=== PATIENT | female | born 1955 | race Caucasian/White ===

== ENCOUNTER 2017-01-17 11:01 | Observation (INO) | payer OTHER ==
[~2017-01-17] VITALS: Ht 157.5 cm; Wt 75.0 kg
[~2017-01-17 11:01] MED LIST: AUGM500T7 PO; CALC600T34 PO; HYDR-3533 PO; LOVA40TA PO; [UNRECOGNIZED DRUG - REMARK] PO
[2017-01-17 11:02] VITALS: BP 159/82; PULSE 78; RESP 20; TEMP 98.1; O2SAT 98
[2017-01-17 11:37] LABS: AUTOMATED NEUTROPHIL # 2.5 TH/MM3 (1.8-7.7); BASOPHIL % 0.5 % (0.0-2.0); EOSINOPHIL % 0.7 % (0.0-4.0); HEMATOCRIT 36.9 % (35.0-46.0); HEMO FLAGS DIFF FINAL; LYMPH % 48.2 % (9.0-44.0); LYMPHOCYTE # 2.7 TH/MM3 (1.0-4.8); MEAN CELL VOLUME 98.9 FL (80.0-100.0); MEAN CORPUSCULAR HEMOGLOBIN 34.1 PG (27.0-34.0); MEAN CORPUSCULAR HGB CONC 34.5 % (32.0-36.0); MONO % 5.7 % (0.0-8.0); NEUT % 44.9 % (16.0-70.0); PLATELET COUNT 141 TH/MM3 (150-450); RED BLOOD COUNT 3.73 MIL/MM3 (4.00-5.30); RED CELL DISTRIBUTION WIDTH 12.9 % (11.6-17.2); WHITE BLOOD COUNT 5.5 TH/MM3 (4.0-11.0)
--- NOTE | 2017-01-17 11:46 | RADRPT ---
EXAM DATE/TIME: 01/17/2017 11:35 [place] COMPARISON: FINGER LEFT 1ST DIGIT ([id number]), March 07, 2015, 9:34. INDICATIONS : Mid sternal chest pains, radiating into upper back and left shoulder. MEDICAL HISTORY : None. SURGICAL HISTORY : None. ENCOUNTER: Initial ACUITY: 2 months PAIN SCORE: 6/10 LOCATION: Left chest FINDINGS: The heart is normal in size. Diffuse chronic interstitial changes. No pleural effusion is evident. Vi sualized bony structures are grossly intact. CONCLUSION: COPD changes. No acute abnormality. Ivan Dacosta MD on January 17, 2017 at 11:44 Board Certified Radiologist. This report was verified electronically.
--- NOTE | 2017-01-17 11:49 | PD ---
HPI Chief Complaint: Chest Pain Time Seen by Provider: 11:48 Travel History International Travel<30 days: No Contact w/Intl Traveler<30days: No Traveled to known affect area: No History of Present Illness HPI 61 YO F with PMH of hypercholesterolemia, current smoker with [id number] history presents to the ED for evaluation of a 2 month history of intermittent left-sided dull chest pain. Worsened over the last week. Constant on presentation. Rated 3/10. No alleviating or exacerbating factors reported. The patient endorses one single episode of radiation to the back which has since resolved. The patient denies accompanying palpitations, shortness of breath, diaphoresis, nausea, vomiting. She endorses family history of IA--- her father at age 50 and her grandfather at an unknown age. She has never had a cardiac workup. PFSH Past Medical History Hx Anticoagulant Therapy: No High Cholesterol: Yes Diminished Hearing: No GERD: Yes Musculoskeletal: Yes (OSTEOPENIA) Dilation and Curettage (D&C): Yes Past Surgical History Oral Surgery: Yes (wisdom teeth) Social History Alcohol Use: Yes (seldom , wine or rum) Tobacco Use: Yes (5 cigs a day) Substance Use: No Allergies-Medications (Allergen,Severity, Reaction): Coded Allergies: No Known Allergies (Unverified , 03/07/15) Reported Meds & Prescriptions Reported Meds & Active Scripts Active Reported Calcium 600 with Vitamin D (Calcium Carbonate-Cholecalciferol) 600-400 mg-Unit Tab 1 Tab PO DAILY Crestor (Rosuvastatin Calcium) 20 Mg Tab 20 Mg PO DAILY Review of Systems Except as stated in HPI: all other systems reviewed are Neg Physical Exam Narrative GENERAL: Well-nourished, well-developed white female in no acute distress. SKIN: Focused skin assessment warm/dry. HEAD: Normocephalic. EYES: No scleral icterus. No injection or drainage. NECK: Supple, trachea midline. No JVD or lymphadenopathy. CARDIOVASCULAR: Regular rate and rhythm without murmurs, gallops, or rubs. CHEST: Nontender throughout without deformity or crepitus. RESPIRATORY: Breath sounds clear and equal bilaterally. No accessory muscle use. GASTROINTESTINAL: Abdomen soft, non-tender, nondistended. Active bowel sounds. MUSCULOSKELETAL: No cyanosis, or edema. BACK: Nontender without obvious deformity. No CVA tenderness. Data Data Last Documented VS Vital Signs Date Time Temp Pulse Resp B/P (MAP) Pulse Ox O2 Delivery O2 Flow Rate FiO2 01/17/17 12:04 70 19 144/76 (98) 98 Room Air 01/17/17 11:02 98.1 Orders Orders Electrocardiogram (01/17/17 11:10) Complete Blood Count With Diff (01/17/17 11:10) Basic Metabolic Panel (Bmp) (01/17/17 11:10) Ckmb (Isoenzyme) Profile (01/17/17 11:10) Troponin I (01/17/17 11:10) Chest, Single Ap (01/17/17 11:10) Admit Order (Ed Use Only) (01/17/17 12:21) Labs Laboratory Tests Test 01/17/17 11:20 White Blood Count 5.5 TH/MM3 Red Blood Count 3.73 MIL/MM3 Hemoglobin 12.7 GM/DL Hematocrit 36.9 % Mean Corpuscular Volume 98.9 FL Mean Corpuscular Hemoglobin 34.1 PG Mean Corpuscular Hemoglobin Concent 34.5 % Red Cell Distribution Width 12.9 % Platelet Count 141 TH/MM3 Mean Platelet Volume 8.8 FL Neutrophils (%) (Auto) 44.9 % Lymphocytes (%) (Auto) 48.2 % Monocytes (%) (Auto) 5.7 % Eosinophils (%) (Auto) 0.7 % Basophils (%) (Auto) 0.5 % Neutrophils # (Auto) 2.5 TH/MM3 Lymphocytes # (Auto) 2.7 TH/MM3 Monocytes # (Auto) 0.3 TH/MM3 Eosinophils # (Auto) 0.0 TH/MM3 Basophils # (Auto) 0.0 TH/MM3 CBC Comment DIFF FINAL Differential Comment Blood Urea Nitrogen 14 MG/DL Creatinine 0.62 MG/DL Random Glucose 108 MG/DL Calcium Level 8.8 MG/DL Sodium Level 141 MEQ/L Potassium Level 4.0 MEQ/L Chloride Level 110 MEQ/L Carbon Dioxide Level 25.0 MEQ/L Anion Gap 6 MEQ/L Estimat Glomerular Filtration Rate 98 ML/MIN Total Creatine Kinase 63 U/L Troponin I LESS THAN 0.02 NG/ML MDM Medical Decision Making Medical Screen Exam Complete: Yes Emergency Medical Condition: Yes Differential Diagnosis Chest pain versus emphysema versus PNA versus ACS versus angina versus other Narrative Course 61 YO F with PMH of hypercholesterolemia, current smoker with 10-[id number]-[id number] history presents to the ED for evaluation of a 2 month history of intermittent left-sided dull chest pain. Worsened over the last week. Constant on presentation. Rated 3/10. No alleviating or exacerbating factors reported. The patient endorses one single episode of radiation to the back which has since resolved. The patient denies accompanying palpitations, shortness of breath, diaphoresis, nausea, vomiting. She endorses family history of IA--- her father at age 50 and her grandfather at an unknown age. She has never had a cardiac workup. Vitals reviewed. Physical exam is unremarkable. No appreciable hem/R/G. Chest clear to auscultation bilaterally. No lower extremity edema. EKG: Rate 75, sinus rhythm. Normal intervals. Normal axis. No ST changes. Reviewed by Dr. Daily. Cardiac enzymes negative x 1. CXR: COPD changes, no acute abnormality. No concerning abnormalities of CBC or BMP. I discussed the patient, workup and plan with Dr. Daily who is in agreement. Discussed the workup with the patient. Plan to admit to the [facility] to rule out cardiac etiology. Patient is agreeable to this plan. Please see [facility] notes for disposition. Sana Elena Jan 17, 2017 11:49
[2017-01-17 11:53] LABS: ANION GAP 6 MEQ/L (5-15); BLOOD UREA NITROGEN 14 MG/DL (7-18); CHLORIDE 110 MEQ/L (98-107); GLOMERULAR FILTRATION RATE 98 ML/MIN (>89); SODIUM (NA) 141 MEQ/L (136-145)
[2017-01-17] MEDS ORDERED: ROSU20 PO (11:54)
[2017-01-17 11:58] LABS: CREATINE KINASE 63 U/L (26-192)
[2017-01-17] MEDS ORDERED: CALC1TAB87 PO (12:01)
[2017-01-17 12:04] VITALS: BP 144/76; PULSE 70; RESP 19; O2SAT 98
[2017-01-17 13:40] VITALS: BP 134/71
--- NOTE | 2017-01-17 13:41 | HHI.HP ---
[facility] Primary Care Physician Thomas La MD Chief Complaint Chest pain History of Present Illness This is a 61-year-old female that presents to ED via private vehicle with a complaint of initially having intermittent left-sided chest discomfort for several months. However she states that it is been constant for the last week. She found nothing initially to bring on the discomfort. She is found nothing to worsen her symptoms over the last week. She has found that if she raises her left arm above her head at the discomfort can improved sometimes. Denies shortness breath nausea or diaphoresis. Cannot recall ever having a cardiac workup. Denies recent illnesses. Denies fevers or chills. Review of Systems General: Patient denies fevers, chills recent, and recent travel HEENT: Patient denies headache, sore throat, difficulty swallowing. Cardiovascular: Has the chest discomfort as mentioned above. Denies sensation of heart beating rapidly or irregularly. No syncope. Denies diaphoresis. Respiratory: Denies shortness of breath or inspirational chest discomfort. Denies coughing wheezing or hemoptysis. GI: Patient denies nausea, vomiting, diarrhea, abdominal pain, bloody stools. Musculoskeletal: Patient denies joint pain or edema. Denies calf pain or edema. Neurovascular: Patient denies numbness, tingling, weakness in extremities. Denies headache. Endocrine: Denies polyuria and polydipsia. Hematologic: Denies easy bruising. Skin: Denies rash or itching. Past Family Social History Allergies: Coded Allergies: No Known Allergies (Unverified , 03/07/15) Past Medical History Hyperlipidemia and tobacco abuse. Denies hypertension, diabetes and CAD. Past Surgical History Noncontributory. Reported Medications Reported Meds & Active Scripts Active Reported Calcium 600 with Vitamin D (Calcium Carbonate-Cholecalciferol) 600-400 mg-Unit Tab 1 Tab PO DAILY Crestor (Rosuvastatin Calcium) 20 Mg Tab 20 Mg PO DAILY Family History Her father had CAD. He in his 70s. Social History Patient has smoked about a quarter pack of cigarettes daily for 40 years. Has an occasional alcoholic beverage. Denies illicit drugs. She is a world geography teacher. Physical Exam Vital Signs Vital Signs Date Time Temp Pulse Resp B/P (MAP) Pulse Ox O2 Delivery O2 Flow Rate FiO2 01/17/17 12:04 70 19 144/76 (98) 98 Room Air 01/17/17 11:56 64 20 98 01/17/17 11:02 98.1 78 20 159/82 (107) 98 Room Air Physical Exam GENERAL: This is a well-nourished, well-developed patient, in no apparent distress. Patient speaks in clear complete sentences. Patient is pleasant. HEENT: Head is atraumatic and normocephalic. Neck is supple without lymphadenopathy and trachea is midline. No JVD or carotid bruits. CARDIOVASCULAR: Regular rate and rhythm without murmurs, gallops, or rubs. RESPIRATORY: Clear to auscultation. Breath sounds equal bilaterally. No wheezes , rales, or rhonchi. Chest wall is tender on the left side however it does not seem to be worsening the symptoms that she has been having. No use of accessory muscles. GASTROINTESTINAL: Abdomen is nontender, nondistended. Abdomen soft. No obvious pulsatile mass or bruit. No CVA tenderness. Strong femoral pulses bilaterally. Normal bowel sounds in all quadrants. MUSCULOSKELETAL: Patient is moving upper and lower extremities freely. No calf tenderness or edema, no Homans sign. Strong pulses in upper and lower extremities. NEUROLOGICAL: Patient is alert and oriented. Cranial nerves 2-12 are grossly intact. No focal deficits and speech is clear. SKIN: No rash and turgor is normal. Laboratory Laboratory Tests Test 01/17/17 11:20 White Blood Count 5.5 Red Blood Count 3.73 Hemoglobin 12.7 Hematocrit 36.9 Mean Corpuscular Volume 98.9 Mean Corpuscular Hemoglobin 34.1 Mean Corpuscular Hemoglobin Concent 34.5 Red Cell Distribution Width 12.9 Platelet Count 141 Mean Platelet Volume 8.8 Neutrophils (%) (Auto) 44.9 Lymphocytes (%) (Auto) 48.2 Monocytes (%) (Auto) 5.7 Eosinophils (%) (Auto) 0.7 Basophils (%) (Auto) 0.5 Neutrophils # (Auto) 2.5 Lymphocytes # (Auto) 2.7 Monocytes # (Auto) 0.3 Eosinophils # (Auto) 0.0 Basophils # (Auto) 0.0 CBC Comment DIFF FINAL Differential Comment Blood Urea Nitrogen 14 Creatinine 0.62 Random Glucose 108 Calcium Level 8.8 Sodium Level 141 Potassium Level 4.0 Chloride Level 110 Carbon Dioxide Level 25.0 Anion Gap 6 Estimat Glomerular Filtration Rate 98 Total Creatine Kinase 63 Troponin I LESS THAN 0.02 Result Diagram: 01/17/17111901/17/17 112 Caprini VTE Risk Assessment Caprini VTE Risk Assessment: No/Low Risk (score <= 1) Caprini Risk Assessment Model Point Value = 1 Point Value = 2 Point Value = 3 Point Value = 5 Age 41-60 Minor surgery BMI > 25 kg/m2 Swollen legs Varicose veins or History of unexplained or recurrent spontaneous Oral contraceptives or hormone replacement Sepsis (< 1 month) Serious lung disease, including pneumonia (< 1 month) Abnormal pulmonary function Acute myocardial infarction Congestive heart failure (< 1 month) History of inflammatory bowel disease Medical patient at bed rest Age 61-74 Arthroscopic surgery Major open surgery (> 45 min) Laparoscopic surgery (> 45 min) Malignancy Confined to bed (> 72 hours) Immobilizing plaster cast Central venous access Age >= 75 History of VTE Family history of VTE Factor V Leiden Prothrombin [id number] Lupus anticoagulant Anticardiolipin antibodies Elevated serum homocysteine Heparin-induced thrombocytopenia Other congenital or acquired thrombophilia Stroke (< 1 month) Elective arthroplasty Hip, pelvis, or leg fracture Acute spinal cord injury (< 1 month) Prophylaxis Regimen Total Risk Factor Score Risk Level Prophylaxis Regimen 0-1 Low Early ambulation 2 Moderate Order ONE of the following: *Sequential Compression Device (SCD) *Heparin 5000 units SQ BID 3-4 Higher Order ONE of the following medications: *Heparin 5000 units SQ TID *Enoxaparin/Lovenox 40 mg SQ daily (WT < 150 kg, CrCl > 30 mL/min) *Enoxaparin/Lovenox 30 mg SQ daily (WT < 150 kg, CrCl > 10-29 mL/min) *Enoxaparin/Lovenox 30 mg SQ BID (WT < 150 kg, CrCl > 30 mL/min) AND/OR *Sequential Compression Device (SCD) 5 or more Highest Order ONE of the following medications: *Heparin 5000 units SQ TID (Preferred with Epidurals) *Enoxaparin/Lovenox 40 mg SQ daily (WT < 150 kg, CrCl > 30 mL/min) *Enoxaparin/Lovenox 30 mg SQ daily (WT < 150 kg, CrCl > 10-29 mL/min) *Enoxaparin/Lovenox 30 mg SQ BID (WT < 150 kg, CrCl > 30 mL/min) AND *Sequential Compression Device (SCD) Assessment and Plan Assessment and Plan * Atypical chest pain: Patient had first set of cardiac enzymes and EKGs. She' s had these symptoms for 1 week constantly. She'll be seen by Dr. Jani Heaton of cardiology and the chest pain center. At this time she will have a Henry protocol ETT and likely be discharged if stress test is nonischemic. She will need to follow-up with PCP. * Hyperlipidemia: Continue current medication. * Tobacco abuse: Patient has been counseled on importance of smoking cessation. Patient is stable at this time. She is agreeable to this plan. Nathanael Horan Jan 17, 2017 13:41
[2017-01-17] MEDS ORDERED: SODIUM CHLORIDE 0.9% FLUSH 5 ML FLUSH IVF PRN (13:45)
[2017-01-17] MEDS ORDERED: ACETAMINOPHEN 500 MG CPLT PO PRN (13:45)
[2017-01-17] MEDS ORDERED: ACETAMINOPHEN/HYDROcodone 325 MG/7.5 MG TAB PO PRN (13:45)
[2017-01-17] MEDS ORDERED: ONDANSETRON HCL 4 MG/2 ML VIAL IV PRN (13:45)
[2017-01-17 15:06] VITALS: O2SAT 98
[2017-01-17 15:26] VITALS: BP 117/69; PULSE 77; RESP 16; TEMP 97.6; O2SAT 97
--- NOTE | 2017-01-17 16:21 | HHI.DCPOC ---
Discharge Care Plan Diagnosis: (1) Chest pain, atypical (2) Hyperlipidemia (3) Tobacco abuse Goals to Promote Your Health * To prevent worsening of your condition and complications * To maintain your health at the optimal level Directions to Meet Your Goals Take your medications as prescribed Follow your dietary instruction Follow activity as directed Keep your appointments as scheduled Take your immunizations and boosters as scheduled If your symptoms worsen call your PCP, if no PCP go to Urgent Care Center or Emergency Room Smoking is Dangerous to Your Health. Avoid second hand smoke Call the 24-hour hour crisis hotline for domestic abuse at Nathanael Horan Jan 17, 2017 16:21
[2017-01-17] MEDS ORDERED: SODIUM CHLORIDE 0.9% FLUSH 5 ML FLUSH IVF SCH (21:00)
--- NOTE | 2017-01-18 16:02 | TR ---
Date Performed: 01/17/2017 Time Performed: 14:14:52 DOCTOR: Tarik Norman DRUG LIST: CLINICAL HISTORY: REASON FOR TEST: REASON FOR ENDING: OBSERVATION: CONCLUSION: LISA PROTOCOL. THE CONSTANT CHEST DISCOMFORT DID NOT CHANGE DURING STRESS TEST.Maxi mum YW=659 % Max HR Atucbtox=962.0% Maximum BZ=998/80 Total Exercise Time=7:16 COMMENTS: Conclusion: Normal treadmill exercise. No evidence of ischemia.
--- NOTE | 2017-01-18 16:19 | EKG ---
Date Performed: 01/17/2017 Time Performed: 11:14:05 PTAGE: 61 years EKG: Sinus rhythm NORMAL ECG NO PREVIOUS TRACING DOCTOR: Tarik Norman Interpretating Date/Time 01/18/2017 16:17:59
== END 2017-01-17 17:08 | disposition home or self-care (01) ==
LOC: NEPC 11:01 → NEDA 12:22 → NEPGCP 13:50
PROVIDERS: ADMIT Internal Medicine Cardiovascular Disease; ATTEND Internal Medicine Cardiovascular Disease
DX: R07.89 Other chest pain (principal); E78.5 Hyperlipidemia, unspecified; J44.9 Chronic obstructive pulmonary disease, unspecified; K21.9 Gastro-esophageal reflux disease without esophagitis; F17.200 Nicotine dependence, unspecified, uncomplicated; M85.80 Other specified disorders of bone density and structure, unspecified site
CPT/HCPCS: 71010; 80048; 82550; 84484; 85025; 93005; 93017; 99285; G0378

== ENCOUNTER 2018-05-11 16:55 | Inpatient (IN) ==
[2018-05-11] MEDS ORDERED: Morphine Sulfate Inj 2 MG/ML Vial IV.PUSH ONE (17:16)
--- NOTE | 2018-05-11 17:26 | ED ---
HPI General Chief Complaint: Extremity Injury, Lower Stated Complaint: lft leg pain Time Seen by Provider: 05/11/18 17:12 Source: patient and family Mode of arrival: wheelchair Limitations: no limitations History of Present Illness HPI Narrative: Patient is a 62-year-old female presenting to [facility] for evaluation of left ankle pain. Patient was stepping off of a curb when she rolled her ankle. Patient's states that he believes it was dislocated, he stated that he moved it back into place. Patient reports 7 out of 10 pain, aching, throbbing, worse with movement. She denies any other injury. She denies any head injury or loss of conscious. Patient's past medical history is significant for hyperlipidemia. MD complaint: Reports ankle injury Onset (ago): minute(s) Type of Injury: Reports inversion Place: Reports street/outdoors Severity: moderate Severity scale (1-10): 7 Relieving factors: immobilization Exacerbating factors: weight bearing, movement and palpation Context: Reports walking Associated symptoms: Reports snap/pop sensation, swelling and unable to bear weight Other symptoms: Reports none Related Data Home Medications Medication Instructions Recorded Confirmed calcium carbonate [Calcium 600] 600 mg PO DAILY 05/11/18 05/11/18 cholecalciferol (vitamin D3) 1,000 unit PO DAILY 05/11/18 05/11/18 [Vitamin D3] rosuvastatin 40 mg PO DAILY 05/11/18 05/11/18 Allergies Allergy/AdvReac Type Severity Reaction Status Date / Time No Known Allergies Allergy Verified 05/11/18 17:01 Review of Systems ROS: all other systems reviewed are negative PMFSH History History Provided By: Patient Medical History Medical History Hyperlipidemia (Chronic) Social History Social History Substance History: No History of Abuse Smoking Status: Current every day smoker Tobacco Type: Cigarettes How Often Do You Have a Drink Containing Alcohol: Monthly or less Recent Travel in [facility] within the Last 8 Weeks: No Recent Out of Country Travel within the Last 8 Weeks: No Exam Narrative Exam Narrative: GENERAL: Well-developed, well-nourished, alert female. Appears uncomfortable, no acute distress. SKIN: Focused skin assessment warm/dry. Abrasion to the anterior aspect of the right foot. HEAD: Atraumatic. Normocephalic. EYES: Pupils equal and round. No scleral icterus. No injection or drainage. ENT: No nasal bleeding or discharge. Mucous membranes pink and moist. NECK: Trachea midline. No JVD. CARDIOVASCULAR: Regular rate and rhythm. No murmur appreciated. RESPIRATORY: No accessory muscle use. Clear to auscultation. Breath sounds equal bilaterally. GASTROINTESTINAL: Abdomen soft, non-tender, nondistended. Hepatic and splenic margins not palpable. MUSCULOSKELETAL: Deformity to left ankle, edema and ecchymosis noted. 2+ dorsalis pedal pulse, brisk less than 3-second capillary refill. NEUROLOGICAL: Awake and alert. No obvious cranial nerve deficits. Motor grossly within normal limits. Normal speech. PSYCHIATRIC: Appropriate mood and affect; insight and judgment normal. Course Initial Documented Vital Signs Temperature 98.6 F 05/11/18 16:58 Pulse Rate 92 H 05/11/18 16:58 Respiratory Rate 18 05/11/18 16:58 Blood Pressure 190/91 H 05/11/18 16:58 Pulse Oximetry 99 05/11/18 16:58 Last Documented Vital Signs Temperature 98.6 F 05/11/18 16:58 Pulse Rate 82 05/11/18 19:37 Respiratory Rate 16 05/11/18 19:37 Blood Pressure 140/72 05/11/18 19:37 Pulse Oximetry 98 05/11/18 19:37 Medical Decision Making MDM Narrative Medical decision making narrative: Patient is well-appearing 62-year-old female presenting after rolling her ankle. Patient is nonweightbearing, she is neurovascularly intact. Imaging and labs ordered and pending. Patient be given morphine and Zofran for pain control. X-ray shows multiple fracture dislocations with disrupted ankle mortise. Labs reviewed, no acute findings. Patient will be admitted discussed with on- call orthopedic surgeon, Dr. Noriega. Patient will be admitted to his service. Admit orders placed. Patient and family advised on clinical findings and plan of care. Medical Screen Exam Complete: Yes Emergency Medical Condition: Yes Differential Diagnosis Differential Diagnosis: Fracture versus sprain versus strain versus dislocation versus other Lab Data Result diagrams: 05/11/18 17:45 05/11/18 17:45 Lab Results 05/11/18 05/11/18 05/11/18 Range/Units 17:45 17:45 17:45 WBC 7.2 (4.0-11.0) th/mm3 RBC 4.02 (4.00-5.30) mil/mm3 Hgb 13.5 (11.6-15.3) gm/dL Hct 40.5 (35.0-46.0) % MCV 100.8 H (80.0-100.0) fL MCH 33.7 (27.0-34.0) pg MCHC 33.4 (32.0-36.0) % RDW 13.4 (11.6-17.2) % Plt Count 126 L (150-450) th/mm3 MPV 8.9 (7.0-11.0) fL Neut % (Auto) 55.4 (16.0-70.0) % Lymph % (Auto) 37.4 (9.0-44.0) % [place] % (Auto) 6.5 (0.0-8.0) % Eos % (Auto) 0.2 (0.0-4.0) % Baso % (Auto) 0.5 (0.0-2.0) % Neut # (Auto) 4.0 (1.8-7.7) th/mm3 Lymph # (Auto) 2.7 (1.0-4.8) th/mm3 [place] # (Auto) 0.5 (0.0-0.9) th/mm3 Eos # (Auto) 0.0 (0.0-0.4) th/mm3 Baso # (Auto) 0.0 (0.0-0.2) th/mm3 WBC Differential . Differential Comment Auto diff final PT 10.2 (9.8-11.6) sec INR 1.0 Ratio APTT 22.3 L (23.4-31.7) sec Sodium 141 (136-145) meq/L Potassium 4.1 (3.5-5.1) meq/L Chloride 108 H (98-107) meq/L Carbon Dioxide 25.4 (21.0-32.0) meq/L Anion Gap 8 (5-15) meq/L BUN 13 (7-18) mg/dL Creatinine 0.67 (0.50-1.00) mg/dL Estimated GFR 89 (>89) mL/min Random Glucose 91 (74-106) mg/dL Calcium 8.8 (8.5-10.1) mg/dL Imaging Data Radiologist's impression: Ankle X-Ray 05/11/18 17:02 CONCLUSION: Multiple fracture dislocations with disrupted ankle mortise. Foot X-Ray 05/11/18 17:02 CONCLUSION: Distal fibula and tibia fractures at the ankle. Anterior subluxation of the distal tibia at the tibiotalar joint and widening of the ankle mortise also noted. No fractures identified in the foot. Discharge Plan Discharge Disposition Patient Disposition: ED Admit(ED Internal Use Only) Discharge Condition Condition: Stable Discharge Order Discharge Orders: ED Use Only Admit Order (Routine); Ordered 05/11/18 Ordered By: Lashae Meek Discharge Details Diagnosis: Ankle fracture, left Physicians Team ED Provider: Aaron Davila ED Midlevel Provider: Lashae Meek Primary Care Provider: UNKNOWN, Attending Provider: Tarik Noriega Status ED Status: Admitted Patient
[2018-05-11] MEDS ORDERED: Morphine Inj 4 MG/ML Vial IV.PUSH ONE (17:29)
--- NOTE | 2018-05-11 17:41 | XR ---
EXAM DATE: 05/11/2018 5:31 PM EST AGE/SEX: 62 years / Female INDICATIONS: Left ankle pain post fall of a curb. CLINICAL DATA: This is the patient's initial encounter. Patient reports that signs and symptoms have been present for 1 day and indicates a pain score of 10/10. MEDICAL/SURGICAL HISTORY: None. None. COMPARISON: No prior exams available for comparison. FINDINGS: Bony structures are osteopenic. There is a complete fracture of medial malleolus and at the ankle mor tise is disrupted. There is also fracture of the distal fibula above the lateral malleolus and there is widening of the anterior tibiotalar joint and fracture of posterior malleolus as well as slight an terior dislocation of the tibia. CONCLUSION: Multiple fracture dislocations with disrupted ankle mortise. Electronically signed by: Tiffani Hinds MD Board Certified Radiologist 05/11/2018 5:40 PM EST
--- NOTE | 2018-05-11 17:43 | XR ---
EXAM DATE: 05/11/2018 5:33 PM EST AGE/SEX: 62 years / Female INDICATIONS: Left ankle and foot pain post fall of curb. CLINICAL DATA: This is the patient's initial encounter. Patient reports that signs and symptoms have been present for 1 day and indicates a pain score of 10/10. MEDICAL/SURGICAL HISTORY: None. None. COMPARISON: [facility], ANKLE COMPLETE LEFT MIN 3V, 05/11/2018. . FINDINGS: 3 views left foot. Distal fibula and tibia fractures described on ankle report. No fractures identifi ed in the foot. CONCLUSION: Distal fibula and tibia fractures at the ankle. Anterior subluxation of the distal tibia at the tibio talar joint and widening of the ankle mortise also noted. No fractures identified in the foot. Electronically signed by: Clemente Davidson MD Board Certified Radiologist 05/11/2018 5:42 PM EST
[2018-05-11 18:01] LABS: Baso % (Auto) 0.5 % (0.0-2.0); Eos % (Auto) 0.2 % (0.0-4.0); Hematocrit 40.5 % (35.0-46.0); Hemoglobin 13.5 gm/dL (11.6-15.3); Lymph # (Auto) 2.7 th/mm3 (1.0-4.8); Lymph % (Auto) 37.4 % (9.0-44.0); Mean Corpuscular HGB Conc 33.4 % (32.0-36.0); Mean Corpuscular Hemoglobin 33.7 pg (27.0-34.0); Mean Corpuscular Volume 100.8 fL (80.0-100.0); Mean Platelet Volume 8.9 fL (7.0-11.0); Mono # (Auto) 0.5 th/mm3 (0.0-0.9); Mono % (Auto) 6.5 % (0.0-8.0); Neut % (Auto) 55.4 % (16.0-70.0); Platelet Count 126 th/mm3 (150-450); Red Blood Count 4.02 mil/mm3 (4.00-5.30); Red Cell Distribution Width 13.4 % (11.6-17.2); White Blood Count 7.2 th/mm3 (4.0-11.0)
[2018-05-11 18:10] LABS: Activated Partial Thrombo Time 22.3 sec (23.4-31.7); Prothrombin Time 10.2 sec (9.8-11.6)
[2018-05-11 18:22] LABS: Calcium 8.8 mg/dL (8.5-10.1); Carbon Dioxide 25.4 meq/L (21.0-32.0); Potassium 4.1 meq/L (3.5-5.1)
[2018-05-12] MEDS ORDERED: Naloxone Inj 0.4 MG/ML Vial IV.PUSH PRN
[2018-05-12] MEDS: HYDROmorphone PF Inj 1 MG/ML Ampul IV.PUSH PRN ×3 (00:21→04:33)
[2018-05-12] MEDS ORDERED: Metoprolol Tartrate 25 MG Tablet PO SCH (02:13)
[2018-05-12] MEDS ORDERED: Chlorhexidine Gluconate 2% 1 Pack (2 Cloths) TOPICAL ONE (02:13)
--- NOTE | 2018-05-12 02:42 | P.HP ---
History of Present Illness Service: Orthopedics Primary Care Physician: UNKNOWN Chief Complaint: Left ankle pain History of Present Illness: Patient is a 62-year-old female presenting to emerge part for evaluation of left ankle pain. Patient was stepping off of a curb when she rolled her ankle. Patient's states that he believes it was dislocated, he stated that he moved it back into place. Patient reports 7 out of 10 pain, aching, throbbing, worse with movement. She denies any other injury. She denies any head injury or loss of conscious. Patient's past medical history is significant for hyperlipidemia. She presented to the emergency department where x-rays revealed a displaced trimalleolar fracture of the ankle. She was admitted for surgical stabilization. - Diagnosis (1) Closed trimalleolar fracture of left ankle (2) Hyperlipidemia (3) Tobacco abuse Inpatient Certification: I certify that the inpatient services were ordered in accordance with Medicare regulations governing the order. This includes certification that hospital inpatient services are reasonable and necessary and in the case of services not specified as inpatient-only under 42 CFR 419.22(n), that they are appropriately provided as inpatient services in accordance to with the 2-midnight benchmark under 43 CFR 412.3(e) Estimated Total Length of Stay (Days): 2 Plans for Post Hospital Care: Home Review of Systems Constitutional: Denies anorexia, Denies body ache(s), Denies chills, Denies daytime sleepiness, Denies excessive sweating, Denies fatigue, Denies fever(s), Denies headache(s), Denies increased appetite, Denies lack of energy, Denies malaise, Denies night sweats, Denies weakness, Denies weight gain, Denies weight loss, Denies other Ears, Nose, Mouth, and Throat: Reports post nasal drip PMFSH - History History Provided By: Patient, Family Member - Medical History Medical History: Medical History (Last Reviewed 05/11/18 @ 18:08 by Maria Isabel Gillespie) Hyperlipidemia - Tobacco History Second Hand Smoke Exposure: Yes Tobacco Use In Past 30 Days: Yes Smoking Status: Current every day smoker Tobacco Type: Cigarettes - Alcohol History How Often Do You Have a Drink Containing Alcohol: 2 to 3 times a week - Substance Use History Substance History: No History of Abuse - Travel History Recent Travel in the [facility] Within the Last 8 Weeks: No Recent Travel Out of the Country Within the Last 8 Weeks: No - Immunization History Tetanus Immunization: Unsure Hx Influenza Vaccine This Season: Yes Medications and Allergies Active Medications: Active Medications Hydrocodone Bitart/Acetaminophen ([place] 5/325) 1 tab PO Q4H PRN PRN Reason: PAIN SCALE 1 TO 5 Diphenhydramine HCl (Benadryl) 25 mg PO Q4H PRN PRN Reason: ITCHING Diphenhydramine HCl (Benadryl Inj) 25 mg IV.PUSH Q4H PRN PRN Reason: ITCHING Hydromorphone HCl (Dilaudid Pf Inj) 1 mg IV.PUSH Q2H PRN PRN Reason: PAIN SCALE 6 TO 10 Last Admin: 05/12/18 02:28 Dose: 1 mg Lactated Ringer's (Lr 1000 Ml Inj) 1,000 mls @ 30 mls/hr IV.SIG .Q24H [facility] Stop: 05/13/18 02:14 Sodium Chloride (Ns Inj) 500 mls @ 30 mls/hr IV.SIG .[id number] [facility] Stop: 05/12/18 19:39 Metoprolol Tartrate (Lopressor) 25 mg PO HEEL SEAM RUBBER [facility] Miscellaneous Information (Mis Nursing Information) 1 each OTHER ONCE [facility] Stop: 05/13/18 02:12 Naloxone HCl (Narcan Inj) 0.4 mg IV.PUSH Q2M PRN PRN Reason: RESPIRATORY RATE LESS THAN 10 Ondansetron HCl (Zofran Inj) 4 mg IV.PUSH Q6H PRN PRN Reason: NAUSEA OR VOMITING Sodium Chloride (Ns Flush) 2 ml IV.FLUSH PRN PRN PRN Reason: FLUSH AFTER USING IV ACCESS Last Admin: 05/11/18 18:07 Dose: 2 ml Sodium Chloride (Ns Flush) 2 ml IV.FLUSH PRN PRN PRN Reason: FLUSH AFTER USING IV ACCESS Sodium Chloride (Ns Flush) 2 ml IV.FLUSH BID [facility] Allergies Allergy/AdvReac Type Severity Reaction Status Date / Time No Known Allergies Allergy Verified 05/11/18 17:01 Home Medications Medication Instructions Recorded Confirmed Type calcium carbonate [Calcium 600] 600 mg PO DAILY 05/11/18 05/11/18 History cholecalciferol (vitamin D3) 1,000 unit PO DAILY 01/05/19 01/05/19 History [Vitamin D3] rosuvastatin 40 mg PO DAILY 05/11/18 05/11/18 History Exam Vital signs: Vital Signs 05/11/18 16:58 05/11/18 18:10 05/11/18 18:30 Temperature 98.6 F Pulse Rate 92 H 88 Respiratory Rate 18 16 Blood Pressure 190/91 H Pulse Oximetry 99 96 05/11/18 19:37 05/11/18 22:00 05/11/18 23:45 Temperature 98.8 F 98.2 F Pulse Rate 82 85 78 Respiratory Rate 16 17 17 Blood Pressure 140/72 128/65 135/71 Pulse Oximetry 98 96 94 L Intake & Output 05/11/18 05/11/18 05/12/18 06:59 18:59 06:59 Weight 74.843 kg 77.111 kg Other: Date of Last Bowel Movement 05/11/18 Weight On Admission 77.111 kg - Constitutional no acute distress, average body habitus - Routine HEENT Exam Head: Present: normocephalic, atraumatic Eye: Present: EOMI, PERRL ENT: Present: mucous membranes moist - Routine Neck Exam Present: supple, full ROM - Routine Chest/Breast/Axilla Exam Chest wall: Absent: tenderness - Routine Cardiovascular Exam Present: RRR - Routine Abdominal Exam Present: soft, normoactive bowel sounds. Absent: tenderness - Routine Extremities Exam Absent: cyanosis, clubbing, edema Comments: The left lower extremity is in a splint. This does limit the examination. She is able to move her toes freely and has good capillary refill and sensation. - Routine Neurological Exam Present: alert, oriented X3, CN II-XII intact, vision grossly intact. Absent: sensory deficit, motor deficit Results - Labs CBC & Chem 7: 05/11/18 17:45 05/11/18 17:45 Labs: Laboratory Results - last 24 hr 05/11/18 05/11/18 05/11/18 17:45 17:45 17:45 WBC 7.2 RBC 4.02 Hgb 13.5 Hct 40.5 MCV 100.8 H MCH 33.7 MCHC 33.4 RDW 13.4 Plt Count 126 L MPV 8.9 Neut % (Auto) 55.4 Lymph % (Auto) 37.4 [place] % (Auto) 6.5 Eos % (Auto) 0.2 Baso % (Auto) 0.5 Neut # (Auto) 4.0 Lymph # (Auto) 2.7 [place] # (Auto) 0.5 Eos # (Auto) 0.0 Baso # (Auto) 0.0 WBC Differential . Differential Comment Auto diff final PT 10.2 INR 1.0 APTT 22.3 L Sodium 141 Potassium 4.1 Chloride 108 H Carbon Dioxide 25.4 Anion Gap 8 BUN 13 Creatinine 0.67 Estimated GFR 89 Random Glucose 91 Calcium 8.8 - Imaging Impressions Ankle X-Ray 05/11/18 17:02 CONCLUSION: Multiple fracture dislocations with disrupted ankle mortise. Foot X-Ray 05/11/18 17:02 CONCLUSION: Distal fibula and tibia fractures at the ankle. Anterior subluxation of the distal tibia at the tibiotalar joint and widening of the ankle mortise also noted. No fractures identified in the foot. Caprini VTE Risk Assessment Caprini VTE Risk Assessment: Moderate/High Risk (score >= 2) Caprini Risk Assessment Model: Point Value = 1 Point Value = 2 Point Value = 3 Point Value = 5 Age 41-60 Minor surgery BMI > 25 kg/m2 Swollen legs Varicose veins or History of unexplained or recurrent spontaneous Oral contraceptives or hormone replacement Sepsis (< 1 month) Serious lung disease, including pneumonia (< 1 month) Abnormal pulmonary function Acute myocardial infarction Congestive heart failure (< 1 month) History of inflammatory bowel disease Medical patient at bed rest Age 61-74 Arthroscopic surgery Major open surgery (> 45 min) Laparoscopic surgery (> 45 min) Malignancy Confined to bed (> 72 hours) Immobilizing plaster cast Central venous access Age >= 75 History of VTE Family history of VTE Factor V Leiden Prothrombin [id number] Lupus anticoagulant Anticardiolipin antibodies Elevated serum homocysteine Heparin-induced thrombocytopenia Other congenital or acquired thrombophilia Stroke (< 1 month) Elective arthroplasty Hip, pelvis, or leg fracture Acute spinal cord injury (< 1 month) Prophylaxis Regimen: Total Risk Factor Score Risk Level Prophylaxis Regimen 0-1 Low Early ambulation 2 Moderate Order ONE of the following: *Sequential Compression Device (SCD) *Heparin 5000 units SQ BID 3-4 Higher Order ONE of the following medications: *Heparin 5000 units SQ TID *Enoxaparin/Lovenox 40 mg SQ daily (WT < 150 kg, CrCl > 30 mL/min) *Enoxaparin/Lovenox 30 mg SQ daily (WT < 150 kg, CrCl > 10-29 mL/min) *Enoxaparin/Lovenox 30 mg SQ BID (WT < 150 kg, CrCl > 30 mL/min) AND/OR *Sequential Compression Device (SCD) 5 or more Highest Order ONE of the following medications: *Heparin 5000 units SQ TID (Preferred with Epidurals) *Enoxaparin/Lovenox 40 mg SQ daily (WT < 150 kg, CrCl > 30 mL/min) *Enoxaparin/Lovenox 30 mg SQ daily (WT < 150 kg, CrCl > 10-29 mL/min) *Enoxaparin/Lovenox 30 mg SQ BID (WT < 150 kg, CrCl > 30 mL/min) AND *Sequential Compression Device (SCD) Assessment and Plan - Assessment (1) Closed trimalleolar fracture of left ankle Code(s): S82.852A - Displaced trimalleolar fracture of left lower leg, initial encounter for closed fracture Status: Acute (2) Hyperlipidemia Code(s): E78.5 - Hyperlipidemia, unspecified Status: Acute (3) Tobacco abuse Code(s): Z72.0 - Tobacco use Status: Acute - Plan The findings were discussed with the patient and her . She has a very unstable fracture pattern. Recommendations are for ORIF. The nature of the procedure, the risks, expected benefits, as well as the postoperative expectations have been discussed with him in detail. In addition, the alternatives to treatment and risks of same were discussed. They acknowledge full understanding and consent to it.
[2018-05-12] MEDS ORDERED: Sodium Chlor 0.9% Inj 500 ML IV.SIG SCH (03:00)
[2018-05-12] MEDS ORDERED: ceFAZolin 1 GM Premix Inj 2 GM/100 ML PIGGYBACK IV.SIG ONE (13:49)
[2018-05-12] MEDS ORDERED: Famotidine PF Inj 20 MG/2 ML Vial ONE (14:04)
--- NOTE | 2018-05-12 14:54 | ECG ---
Date Performed: 05/12/2018 Time Performed: 04:58:38 PTAGE: 62 years EKG: Sinus tachycardia Poor R wave progression - probable normal variant Anterior T wave changes are nonspecific Low QRS voltages in precordial leads Borderline ECG Since PREVIOUS TRACING , no significant change noted PREVIOUS TRACIN01/17/2017 11.14 DOCTOR: Tarik Norman Interpretating Date/Time 05/12/2018 14:53:46
--- NOTE | 2018-05-12 15:49 | P.OP ---
- Preoperative Diagnosis (1) Closed trimalleolar fracture of left ankle - Postoperative Diagnosis (1) Closed trimalleolar fracture of left ankle Date of procedure: 05/12/18 Procedure: Open reduction internal fixation left ankle fracture Implants: Synthes Anesthesia: GETA Surgeon: Tarik Noriega MD [employer] Operator: Kim Nichole PA-C (Ashley) The surgical procedure was assisted by my physician's family medicine physician assistant. Her presence was necessary throughout the case for manipulation and positioning of the surgical extremity. My PA was assisting me throughout the duration of this procedure. The skill set of the physician family medicine physician assistant was medically necessary to complete this procedure. During the surgical case the cardiovascular surgical tech was working at the back table and the physician family medicine physician assistant was directly assisting me. Estimated blood loss (mL): 30 Pathology: none sent Operation and Findings: Indications: This 62-year-old female injured her left ankle yesterday when she fell. She had pain and inability to ambulate. She presented to the emergency department. X-rays revealed a displaced trimalleolar fracture of the left ankle. Given the alternatives to treatment she presents for ORIF. Procedure and findings: The patient was taken to the operative suite and after undergoing an adequate level of general anesthesia was kept supine on the operating table. Preoperative antibiotics consisted of Ancef 2 g IV. The left lower extremity was then prepped and draped in usual sterile fashion with alcohol and Hibiclens. There is noted to be a small blister and an abrasion proximal to the medial fracture site. There was moderate swelling. The leg was exsanguinated and tourniquet inflated. Attention was first focused on the lateral aspect where a longitudinal incision was made along the distal fibula. This is greater on the skin and subcutaneous tissue with a knife. The muscular fascia was incised and split longitudinally. The lateral cortex of the fibula was isolated. Subperiosteal dissection was carried out. The fracture site was identified. It was curetted and irrigated of all fracture hematoma. There was a longitudinal component from distal anterior to proximal posterior. A lag screw was then placed after drilling. This gave good fixation. A Synthes locking fibular plate was then applied to the lateral fibula. The position was checked with the C arm. Cortical fixation was accomplished proximal to the fracture site in an oblong hole to allow further manipulation of the plate. Distal locking screws were then placed with fluoroscopic guidance. The distal proximal cortical screws were then drilled and the appropriate length screws placed. This gave an anatomic reduction. Attention was then focused on the medial aspect. The medial malleolus lined up anatomically after plate fixation laterally. A small percutaneous incision was made distal to the medial malleolus. 2 smooth K wires were then advanced from the distal medial malleolus across the fracture site into the distal tibia. The position was checked in both the AP and lateral planes. To 4.0 cancellus screws were then seated. The position of the fracture reduction and placement of the internal fixation were checked both the AP lateral planes with the C-arm. Wounds were then thoroughly irrigated. Lateral incision was closed in layers utilizing 0 Vicryl suture on the muscular fascia, 2-0 Vicryl suture on the subcutaneous tissue and 2-0 nylon on the skin. The medial percutaneous incision was closed with nylon. Sterile dressings were applied, the patient was placed into a splint, awakened, transferred to the hospital bed and taken to the recovery room in stable condition.
[2018-05-12] MEDS ORDERED: Bisacodyl 10 MG Supp RECTAL PRN (15:54)
[2018-05-12] MEDS ORDERED: Post-op Orders (for Pharmacy) OTHER STA (15:54)
[2018-05-12] MEDS ORDERED: fentaNYL Citrate Inj 100 MCG/2 ML Ampul ONE (15:57)
[2018-05-12] MEDS ORDERED: Morphine Inj 4 MG/ML Vial ONE ×2 (15:58)
[2018-05-12] MEDS ORDERED: *morphine SULFATE 4 MG/ML PERIprocedure ONLY ONE ×2 (16:18→16:48)
--- NOTE | 2018-05-12 16:19 | XR ---
EXAM DATE: 05/12/2018 4:16 PM EST AGE/SEX: 62 years / Female INDICATIONS: Open reduction left ankle. CLINICAL DATA: This is the patient's subsequent encounter. Patient reports that signs and symptoms h ave been present for 2 days and indicates a pain score of Nonresponsive. MEDICAL/SURGICAL HISTORY: Non-responsive. Non-responsive. COMPARISON: No prior exams available for comparison. FINDINGS: Side plate and multiple screws traverse the fibula in addition to screws traversing the me dial malleolus. with excellent anatomical alignment of the bony structures. CONCLUSION: Intact postsurgical changes for technique. Electronically signed by: Tiffani Hinds MD Board Certified Radiologist 05/12/2018 4:18 PM EST
[2018-05-12] MEDS: ceFAZolin 2 GM Premix Inj 2 GM/50 ML PIGGYBACK IV.SIG SCH (19:54)
[2018-05-12] MEDS: Senna/Docusate Sodium 8.6/50 MG Tablet PO SCH (20:25)
[2018-05-13] MEDS: ceFAZolin 2 GM Premix Inj 2 GM/50 ML PIGGYBACK IV.SIG SCH ×2 (01:17→09:35)
[2018-05-13 06:40] VITALS: TEMP 97.8
--- NOTE | 2018-05-13 07:31 | P.PNOP ---
Subjective Interval history: POD #1 Open reduction internal fixation left ankle fracture Pt admits pain well controlled. All questions answered. Feels ready for d/c to home. Physical Exam Vital signs: Vital Signs 05/12/18 08:00 05/12/18 12:00 05/12/18 15:50 Temperature 98.1 F 98.3 F 97.7 F Pulse Rate 104 H 99 H 92 H Respiratory Rate 18 18 16 Blood Pressure 128/68 107/67 111/76 Pulse Oximetry 95 92 L 93 L 05/12/18 16:00 05/12/18 16:15 05/12/18 16:30 Temperature Pulse Rate 84 80 84 Respiratory Rate 16 16 16 Blood Pressure 132/75 138/72 115/62 Pulse Oximetry 94 L 94 L 97 05/12/18 17:32 05/12/18 19:15 05/12/18 23:30 Temperature 98.1 F 97.9 F 98.0 F Pulse Rate 81 73 73 Respiratory Rate 16 17 17 Blood Pressure 117/69 117/67 108/55 L Pulse Oximetry 94 L 95 96 05/13/18 04:20 Temperature 97.8 F Pulse Rate 67 Respiratory Rate 16 Blood Pressure 106/54 L Pulse Oximetry 96 Intake & Output 05/12/18 05/13/18 05/13/18 18:59 06:59 18:59 Intake Total 600 / 600 640 / 640 Output Total Balance 580 / 580 640 / 640 Weight 77.1 kg Intake: IV 100 / 100 Ancef 2 GM Premix Inj 2 gm In 100 / 100 50 ml @ 100 mls/hr IV.SIG Q6H [facility] Rx#:[id number] Oral 540 / 540 Anesthesia Amount 600 / 600 Output: Estimated Blood Loss Other: # Voids 3 2 Date of Last Bowel Movement 05/11/18 # Bowel Movements 0 Narrative: LLE: in splint, dry and intact, able to move distal digits, good cap refill, no calf pain, NVI Results - Labs CBC & Chem 7: 05/11/18 17:45 05/11/18 17:45 - Imaging Impressions Ankle X-Ray 05/12/18 00:00 CONCLUSION: Intact postsurgical changes for technique. - Procedures Open reduction internal fixation left ankle fracture 05/12/18 Assessment and Plan - Problem List (1) Closed trimalleolar fracture of left ankle Code(s): S82.852A - Displaced trimalleolar fracture of left lower leg, initial encounter for closed fracture Status: Acute (2) Hyperlipidemia Code(s): E78.5 - Hyperlipidemia, unspecified Status: Acute (3) Tobacco abuse Code(s): Z72.0 - Tobacco use Status: Acute - Assessment and Plan POD #1 Open reduction internal fixation left ankle fracture Ortho status stable Non w/b LLE ASA for DVT prophylaxis Leave splint in place Follow up this Sunday with Dr. Noriega or myself Clear for discharge from an orthopedic standpoint.
--- NOTE | 2018-05-13 07:44 | P.DS ---
Date of admission: 05/11/18 18:48 Primary care physician: UNKNOWN Brief History from admission: Patient is a 62-year-old female presenting to emerge part for evaluation of left ankle pain. Patient was stepping off of a curb when she rolled her ankle. Patient's states that he believes it was dislocated, he stated that he moved it back into place. Patient reports 7 out of 10 pain, aching, throbbing, worse with movement. She denies any other injury. She denies any head injury or loss of conscious. Patient's past medical history is significant for hyperlipidemia. She presented to the emergency department where x-rays revealed a displaced trimalleolar fracture of the ankle. She was admitted for surgical stabilization. DS: Diagnosis - Discharge Diagnosis (1) Closed trimalleolar fracture of left ankle Status: Acute (2) Hyperlipidemia Status: Acute (3) Tobacco abuse Status: Acute DS: Medications - Discharge Medications Prescriptions: hydrocodone-acetaminophen 1 tab PO Q4H PRN #40 tab PRN Reason: Pain Scale 1 To 5 DS: Summary Hospital Course: After admission from the emergency department the patient was taken to the operating room where the patient underwent an ORIF of the left ankle. The patient tolerated the procedure well. For details of operative report please see dictated operative report. The patient was placed on Ancef for infection prophylaxis and Aspirin for DVT prophylaxis. Physical therapy was consulted for discharge planning. The patient will be discharged home. At the time of discharge the patient was afebrile. Incision line noted to be healing well. The patient will be discharged home with Aspirin for DVT prophylaxis and prescribed Hydrocodone for pain. Acute pain exception, there are no other alternative to treatment, e-forcse checked. The patient acknowledges full understanding of plan of treatment and agrees to it. - Time Spent with Patient Total time spent providing and/or coordinating discharge services: Greater than 30 minutes - Quality: VTE Deep Vein Thrombosis/Pulmonary Embolism Present on Admission: No Exam Vital signs: Vital Signs 05/12/18 08:00 05/12/18 12:00 05/12/18 15:50 Temperature 98.1 F 98.3 F 97.7 F Pulse Rate 104 H 99 H 92 H Respiratory Rate 18 18 16 Blood Pressure 128/68 107/67 111/76 Pulse Oximetry 95 92 L 93 L 05/12/18 16:00 05/12/18 16:15 05/12/18 16:30 Temperature Pulse Rate 84 80 84 Respiratory Rate 16 16 16 Blood Pressure 132/75 138/72 115/62 Pulse Oximetry 94 L 94 L 97 05/12/18 17:32 05/12/18 19:15 05/12/18 23:30 Temperature 98.1 F 97.9 F 98.0 F Pulse Rate 81 73 73 Respiratory Rate 16 17 17 Blood Pressure 117/69 117/67 108/55 L Pulse Oximetry 94 L 95 96 05/13/18 04:20 Temperature 97.8 F Pulse Rate 67 Respiratory Rate 16 Blood Pressure 106/54 L Pulse Oximetry 96 Intake & Output 05/12/18 05/13/18 05/13/18 18:59 06:59 18:59 Intake Total 600 / 600 640 / 640 Output Total Balance 580 / 580 640 / 640 Weight 77.1 kg Intake: IV 100 / 100 Ancef 2 GM Premix Inj 2 gm In 100 / 100 50 ml @ 100 mls/hr IV.SIG Q6H [facility] Rx#:[id number] Oral 540 / 540 Anesthesia Amount 600 / 600 Output: Estimated Blood Loss Other: # Voids 3 2 Date of Last Bowel Movement 05/11/18 # Bowel Movements 0 Narrative: LLE: in splint, dry and intact, able to move distal digits, good cap refill, no calf pain, NVI Results Procedures completed during hospitalization: Open reduction internal fixation left ankle fracture 05/12/18 - Impressions ITS Impressions Foot X-Ray 05/11/18 17:02 CONCLUSION: Distal fibula and tibia fractures at the ankle. Anterior subluxation of the distal tibia at the tibiotalar joint and widening of the ankle mortise also noted. No fractures identified in the foot. Ankle X-Ray 05/12/18 00:00 CONCLUSION: Intact postsurgical changes for technique. Discharge Plan - Discharge Disposition Patient Disposition: Discharge Home - Discharge Condition Condition: Stable - Discharge Order Discharge Orders: Discharge Order (Routine); Ordered 05/13/18 Ordered By: Kim Nichole (Ashley) ED Use Only Admit Order (Routine); Ordered 05/11/18 Ordered By: Lashae Meek - Discharge Details Anticipated Discharge Date: 05/13/18 - Physicians Team Primary Care Provider: UNKNOWN, Attending Provider: Tarik Noriega
[2018-05-13] MEDS: Senna/Docusate Sodium 8.6/50 MG Tablet PO SCH (09:38)
[2018-05-13 10:30] VITALS: BP 111/58; PULSE 83; RESP 13; O2SAT 93
== END 2018-05-13 12:24 | disposition home or self-care (01) | DRG 494 ==
LOC: NEPD 16:55 → NEDA 18:48 → N06 21:48 → NEDA 21:49
PROVIDERS: ADMIT Orthopaedic Surgery Sports Medicine; ATTEND Orthopaedic Surgery Sports Medicine
PROC: ORIFANK (2018-05-12 14:11)
CPT/HCPCS: 73610; 73630; 76000; 80048; 85025; 85610; 85730; 90774; 90775; 90784; 93005; 96374; 96375; 97163; 99285; C1713; C8952; J0131; J0690; J1170; J1580; J2250; J2270; J2405; J3010; J7040; J7120